=== PATIENT | male | born 1980 | race Caucasian/White ===

== ENCOUNTER 2016-06-22 06:22 | Day surgery (SDC) | payer OTHER ==
[2016-06-22] MEDS ORDERED: MIDAZOLAM HCL 5 MG/5 ML VIAL IV PRN (06:25)
[2016-06-22] MEDS ORDERED: FENTANYL 250 MCG/5 ML AMP IV PRN (06:25)
[2016-06-22] MEDS ORDERED: LIDOCAINE Viscous 2% 15 ML UDCUP PO PRN (06:25)
[2016-06-22] MEDS ORDERED: LACTATED RINGERS 1,000 ML IV SCH (06:30)
[2016-06-22] MEDS ORDERED: LACTATED RINGERS 1,000 ML ONE (06:35)
[2016-06-22] MEDS ORDERED: IV START KIT ONE (06:35)
[2016-06-22] MEDS ORDERED: MIDAZOLAM HCL 5 MG/5 ML VIAL ONE (06:45)
[2016-06-22] MEDS ORDERED: FENTANYL 100 MCG/2 ML VIAL ONE ×2 (06:45→06:54)
[2016-06-22] MEDS ORDERED: LIDOCAINE Viscous 2% 15 ML UDCUP ONE (06:46)
[2016-06-22 12:33] LABS: HELICOBACTER PYLORII DETECTION NEGATIVE (NEGATIVE)
--- NOTE | 2016-06-26 09:44 | SURGPATH ---
[facility] [address] [place] [id number] Patient Name: GREGORIO GUADALUPE MR#: [id number] : 1980 Gender: M Specimen #: [id number] Collected: 06/22/2016 Received: 06/25/2016 Reported: 06/26/2016 Submitting Phys: SHAKA CONNELLY Copy To Phys: [facility] CLYDE DOMINIQUE Connelly Clinical History / Pre-Operative Diagnosis: Epigastric pain, rule out; giardia, celiac sprue, gastritis Specimen Source / Surgical Procedure Performed: #1 duodenal biopsy, #2 stomach antrum biopsy Interpretation: 1. DUODENUM, BIOPSY: - SMALL BOWEL MUCOSA SHOWING NO DIAGNOSTIC ABNORMALITIES. - NO EVIDENCE OF CELIAC DISEASE. - NO EVIDENCE OF SIGNIFICANT INFLAMMATION, VILLOUS BLUNTING, OR MALIGNANCY. 2. GASTRIC ANTRUM, BIOPSY: - GASTRIC MUCOSA SHOWING NO DIAGNOSTIC ABNORMALITIES. - NO MICROORGANISMS IDENTIFIED WITH ROUTINE STAINING. - NO EVIDENCE OF SIGNIFICANT INFLAMMATION, INTESTINAL METAPLASIA, OR MALIGNANCY. Electronically Signed Out Kareem Smith M.D., Ph.D. Gross Description: 1. The specimen is received in formalin labeled with the patient's name and "duodenum". The specimen consists of two fragments of trejo soft tissue each is 0.2-0.4 cm in greatest dimension. Submitted in toto in one cassette 0. The specimen is received in formalin labeled with the patient's name and "gastric antrum". The specimen consists of two fragments of trejo soft tissue each is 0.3-0.6 cm in greatest dimension. Submitted in toto in one cassette LUIS MANUEL Vargas Microscopic Description: 1. Examination of multiple levels from the duodenum biopsy shows two fragments of histologically unremarkable small bowel mucosa. The villous architecture is intact without evidence of blunting. There is no evidence of increased intraepithelial lymphocytes. There is no evidence of significant inflammation or malignancy. 2. Examination of the levels from gastric antrum biopsy shows two fragments of histologically unremarkable gastric mucosa. The lamina propria is not expanded. No microorganisms are seen with routine staining. There is no evidence of significant inflammation, intestinal metaplasia, or malignancy. 1: [id number] 2: 93667 R10.13
== END 2016-06-22 08:08 | disposition home or self-care (01) ==
LOC: SDC 06:22
PROVIDERS: ATTEND Internal Medicine Gastroenterology
PROC: 0DB98ZX Excision of Duodenum, Via Natural or Artificial Opening Endoscopic, Diagnostic (ICD-10-PCS; principal; 2016-06-22)
PROC: 0DB68ZX Excision of Stomach, Via Natural or Artificial Opening Endoscopic, Diagnostic (ICD-10-PCS; 2016-06-22)
PROC: 0DJD7ZZ Inspection of Lower Intestinal Tract, Via Natural or Artificial Opening (ICD-10-PCS; 2016-06-22)
DX: K29.70 Gastritis, unspecified, without bleeding (principal); K29.80 Duodenitis without bleeding; K64.8 Other hemorrhoids; Z86.010 Personal history of colon polyps
CPT/HCPCS: 87081; 43239; 45990; J3010 ×2; J2250; A9270; J7120